=== PATIENT | female | born 1970 | race African-American/Black ===

== ENCOUNTER 2017-06-16 08:36 | Emergency (ER) | payer OTHER ==
[~2017-06-16] VITALS: Ht 157.5 cm; Wt 117.0 kg
--- NOTE | ~2017-06-16 | EKG ---
[place] [address] [facility] [email or web address] [address] ELECTROCARDIOGRAM REPORT Name: FLYNN FRANCO Room #: DEP ANALISA Nguyen#: [id number] Admission: 06/16/17 Attend Phys: Discharge: 06/16/17 Date of : 72 Report #: [id number] THIS REPORT FOR: //name// [facility] ED Test Date: 2017-06-16 Test Time: 08:50:17 Pat Name: FLYNN FRANCO Department: Room: Gender: F Survey Methodologist: hthom : 1970 Requested By: Chelsea Blackmon Order Number: [id number] MD: Faizan Couch Measurements Intervals [place] Rate: 65 P: 29 SC: 164 QRS: -31 QRSD: 104 T: 9 QT: 449 QTc: 467 Interpretive Statements Sinus rhythm Probable left atrial enlargement Low voltage, precordial leads Left ventricular hypertrophy Borderline T abnormalities, anterior leads No previous ECG available for comparison Electronically Signed On 06-16-2017 22:20:13 CDT by Faizan Couch [email or web address] <ELECTRONICALLY SIGNED> By: Faizan Couch MD 06/16/17 2220 D: [id number] Faizan Couch MD /MOISES
[2017-06-16 09:21] LABS: ANION GAP 10 mmol/L (7-16); BUN 12 mg/dL (7-18); CALCIUM 8.9 mg/dL (8.5-10.1); CHLORIDE 105 mmol/L (98-107); CO2 26 mmol/L (21-32); CREATININE 0.6 mg/dL (0.6-1.0); GLUCOSE 93 mg/dL (74-106); POTASSIUM 4.5 mmol/L (3.5-5.1); SODIUM 141 mmol/L (136-145)
[2017-06-16 09:33] LABS: NT-PRO BRAIN NAT PEPTIDE 20 pg/mL (<300); TROPONIN-I < 0.04 ng/mL (<0.04-0.07)
[2017-06-16] MEDS ORDERED: NORVASC5 MG PO (09:35)
[2017-06-16 09:36] LABS: BASOPHILS 0.6 % (0.0-2.0); HEMATOCRIT 42.1 % (37.0-47.0); HEMOGLOBIN 13.5 gm/dL (12.0-15.0); LYMPHOCYTES 47.4 % (24.0-44.0); MCH 28.6 pg (26.0-34.0); MCHC 32.2 g/dL (28.0-37.0); MCV 88.9 fL (80.0-100.0); MONOCYTES 6.3 % (1.0-8.0); PLATELET COUNT 255 thou/uL (150-400); POLYS 38.7 % (36.0-66.0); RBC 4.74 mil/uL (4.20-5.00); RDW 13.9 % (10.5-14.5); WBC 5.2 thou/uL (4.0-11.0)
[2017-06-16 09:37] LABS: MANUAL DIFF NO
[2017-06-16] MEDS ORDERED: NAPROSYN500 MG PO (11:49)
[2017-06-16 12:12] VITALS: BP 133/69
== END 2017-06-16 11:50 | disposition home or self-care (01) ==
LOC: ER 08:36
PROVIDERS: Emergency Medicine
DX: R07.89 Other chest pain (principal); I10 Essential (primary) hypertension; F10.99 Alcohol use, unspecified with unspecified alcohol-induced disorder